=== PATIENT | male | born 1970 | race Caucasian/White ===

== ENCOUNTER 2022-03-08 08:57 | Observation (INO) | payer OTHER, SELFPAY ==
[2022-03-08] VITALS (10 sets, daily range): BP systolic 119–179; BP diastolic 79–89; PULSE 63–103; RESP 12–20; TEMP 36.3–36.8; O2SAT 86–100; BMI 33.6
--- NOTE | 2022-03-08 | PATH_ITS ---
[facility] Accession Number: [id number] . 01 Material submitted: . gallbladder - GALLBLADDER . 01 Clinical history: . ABD PAIN . 01 Diagnosis: Gallbladder, Cholecystectomy: Acute on chronic cholecystitis and cholelithiasis. Benign nodular hepatic parenchyma with mild chronic inflammation involving portal tract and lobule, without evidence of fibrosis. [facility] 03/12/2022 1100 Local . 01 Electronically signed: . Daphne Moses MD, Pathologist NPI- [id number] . 01 Gross description: . The specimen is received in formalin labeled with the patient's name and gallbladder, and consists of an intact gallbladder measuring 7.4 x 3.5 x 2.7 cm with yellow to garcia smooth serosa and a rough hepatic surface with a smooth firm nodule measuring 2.0 x 0.8 x 0.6 cm. The cystic duct is received closed with a clamp, is inked blue, and no pericystic lymph node is identified. The nodule on the hepatic surface is inked black. Opening the specimen reveals the lumen to contain a moderate amount of green mucoid bile and a single brown roughened calculus measuring 1.8 cm in greatest dimension, not grossly obstructing the cystic duct. The mucosa is green and velvety with numerous pinpoint yellow areas of discoloration, consistent with cholesterol with no polyps or lesions identified, and the montano average 0.6 cm thick. [employer] sections to include the hepatic surface nodule and cystic duct margin are submitted in cassette A1. ([id number]) /MRV 03/11/2022 1224 Local . 01 Pathologist provided ICD-10: K80.12 . 01 CPT . 401646 Performed at: 01 [facility] [address] [place] [address] [address], [place], [place] [id number] MD Vasyl Moy MD Phone: [phone]
--- NOTE | 2022-03-08 09:34 | ED_ITS ---
HPI - Abdominal Pain General Chief Complaint: Abdominal Pain Stated Complaint: abd pain Time Seen by Provider: 03/08/22 09:06 Source: patient Mode of arrival: Ambulatory History of Present Illness HPI narrative: 51-year-old male nonsmoker with noncontributory medical history presents with a chief complaint of severe upper abdominal pain since 4:00 a.m.. Patient states that it is gradually worsening on the whole but will have episodes of apparently unprovoked worsening. He has been nauseated but denies any vomiting. He states moving seems to make it worse but eating and drinking play no role. He is had no fever or chills. Denies chest pain or shortness of breath. He denies any history of the same. He denies any alcohol use. He denies any change in diet or medications. He is had no prior abdominal surgeries. He states he had a small bowel movement this morning and is still passing gas Related Data Home Medications Medication Instructions Recorded Confirmed cetirizine 10 mg tablet (Zyrtec) 10 mg PO DAILY 11/16/20 11/16/20 Previous Rx's Medication Instructions Recorded azithromycin 250 mg tablet See Rx Instructions PO .COMPLEX #6 11/16/20 tabs erythromycin 5 mg/gram (0.5 %) eye 1 applic ophthalmic (eye) Q8H #3.5 11/16/20 ointment grams Allergies Allergy/AdvReac Type Severity Reaction Status Date / Time No Known Drug Allergies Allergy Verified 03/08/22 09:03 Review of Systems Review of Systems Narrative: GENERAL: Denies chills, fatigue, malaise, fever, sweats. HEENT: Denies sinus pain, ear pain, sore throat, difficulty swallowing, dizziness. RESPIRATORY: Denies dyspnea, cough, wheezing, hemoptysis, sputum. CARDIOVASCULAR: Denies chest pain, palpitations, orthopnea, edema, GASTROINTESTINAL: See HPI : Denies dysuria, frequency, incontinence, hematuria, urinary retention. MUSCULOSKELETAL: denies weakness, joint pain, or bony pain SKIN: Denies rash, skin lesions, or other NEUROLOGIC: Denies weakness, headache, numbness, change in speech, confusion, seizures, incoordination. PSYCHIATRIC: No concerning psychosocial issues. 12 point review of systems is negative except for those stated above Patient History Social History Smoking Status: Never smoker Smoking Status: Never smoker alcohol intake frequency: holidays/special occasions only Substance Use Type: does not use Exam Narrative Exam Narrative: GENERAL: [51] year old patient appears stated age. Well-developed patient, in mild distress. Obviously uncomfortable, pacing in the room and rubbing his upper abdomen HEAD: Atraumatic. Normocephalic. EYES: Pupils equal round and reactive. Extraocular motions intact. No scleral icterus. No injection or drainage. ENT: Nose without bleeding, purulent drainage. Throat without erythema, tons illar hypertrophy or exudate. Airway patent. NECK: Trachea midline. Non tender CARDIOVASCULAR: Regular rate and rhythm without murmurs, gallops, or rubs. RESPIRATORY: Clear to auscultation. Breath sounds equal bilaterally. No wheezes, rales, or rhonchi. GASTROINTESTINAL: Abdomen soft, distended, tender in the epigastrium, bowel sounds present though slightly decreased EXTREMITIES: No edema or joint tenderness. BACK: Nontender without deformity or crepitance. No flank tenderness. NEURO: AOx3. SKIN: No rash or erythema of visible areas Initial Vital Signs Initial Vital Signs: Vital Signs Temperature 97.7 F 03/08/22 09:00 Pulse Rate 63 03/08/22 09:00 Respiratory Rate 17 03/08/22 09:00 Blood Pressure 179/84 H 03/08/22 09:00 Pulse Oximetry 98 03/08/22 09:00 Oxygen Delivery Method 03/08/22 09:00 Course Orders Ordered: ED Orders 03/08/22 09:15 Complete Blood Count AUTO DIFF Stat Comprehensive Metabolic Panel Stat Lipase Stat 03/08/22 09:37 XR acute abdomen series Stat Lactate (Lactic Acid) Stat 03/08/22 09:38 Lipase Stat 03/08/22 09:46 EKG-12 Lead Stat 03/08/22 10:11 US abdomen limited Stat 03/08/22 12:39 COVID19 -Nasal RAPID/Pre-Proc Stat Discontinued Medications Hydromorphone HCl (Hydromorphone 0.5 Mg Inj) 0.5 mg IV NOW ONE Stop: 03/08/22 12:29 Last Admin: 03/08/22 12:53 Dose: 0.5 mg Documented By: ESSENCE Sodium Chloride (Normal Saline 0.9%) 1,000 mls @ 1,000 mls/hr IV BOLUS ONE Stop: 03/08/22 10:36 Last Admin: 03/08/22 09:43 Dose: 1,000 mls/hr Documented By: ESSENCE(2) Piperacillin Sod/Tazobactam (Sod 4.5 gm/ Sodium Chloride) 100 mls @ 200 mls/hr IV NOW ONE Stop: 03/08/22 12:29 Last Admin: 03/08/22 12:59 Dose: 200 mls/hr Documented By: ESSENCE Ondansetron HCl (Ondansetron 4 Mg/2 Ml Inj) 4 mg IV NOW ONE Stop: 03/08/22 12:29 Last Admin: 03/08/22 12:53 Dose: 4 mg Documented By: ESSENCE Pantoprazole Sodium (Pantoprazole 40 Mg Vial) 40 mg IV NOW ONE Stop: 03/08/22 09:38 Last Admin: 03/08/22 09:43 Dose: 40 mg Documented By: ESSENCE(2) Consultations Consultation #1: Dr. Lofton happy to accept on his service. Vital Signs Vital signs: Vital Signs - 8 hr 03/08/22 09:00 03/08/22 12:01 Temperature 97.7 F Pulse Rate 63 72 Respiratory Rate 17 18 Blood Pressure 179/84 H 177/82 H Pulse Oximetry 98 100 Oxygen Delivery Method Room Air Room Air MDM - Abdominal Pain Lab Data Result diagrams: 03/08/22 09:15 03/08/22 09:15 Labs: Lab Results 03/08/22 03/08/22 Range/Units 09:15 09:15 WBC 9.6 (4.5-11.0) X10^3/uL RBC 4.99 (4.5-5.9) X10^6/uL Hgb 14.8 (13.5-17.5) g/dL Hct 43.1 (41-53) % MCV 86.4 (80-100) fL MCH 29.6 (26-34) PG MCHC 34.3 (30-36) % RDW 13.9 (11.6-14.8) % Plt Count 291 (150-400) X10^3/uL Neut % (Auto) 81.0 H (50-75) % Lymph % (Auto) 14.1 L (25-40) % [place] % (Auto) 4.0 (3-14) % Eos % (Auto) 0.7 L (2-4) % Baso % (Auto) 0.2 (0-2) % Neut # (Auto) 7800 H (7762-3212) /uL Lymph # (Auto) 1400 (5855-9091) /uL [place] # (Auto) 400 (0-900) /uL Eos # (Auto) 100 (0-450) /uL Baso # (Auto) 0 (0-100) /uL Sodium 141 (137-145) mmol/L Potassium 4.3 (3.4-5.1) mmol/L Chloride 106 (98-107) mmol/L Carbon Dioxide 24 (22-32) mmol/L BUN 16 (9-20) mg/dL Creatinine 1.04 (0.66-1.25) mg/dL Estimated GFR > 60 (>60) mL/min BUN/Creatinine Ratio 15.4 (6-22) Glucose 154 H (70-100) mg/dL Calcium 9.6 (8.4-10.2) mg/dL Total Bilirubin 0.3 (0.2-1.3) mg/dL AST 33 (17-59) IU/L ALT 45 (<50) IU/L Alkaline Phosphatase 93 (38-126) U/L Total Protein 8.8 H (6.3-8.2) g/dL Albumin 4.5 (3.5-5.0) g/dL Globulin 4.3 H (1.7-4.1) g/dL Albumin/Globulin Ratio 1.0 (1.0-2.8) Lipase 131 (23-300) U/L Point of care testing: Urine Dip Bedside Urine Glucose Negative Bedside Urine Bilirubin - Negative Bedside Urine Ketone - Negative Urine Specific [place] 1.025 Bedside Urine Occult Blood - Negative Bedside Urine pH 6.0 Bedside Urine Protein - Negative Bedside Urine Urobilinogen - Negative Bedside Urine Nitrite - Negative Bedside Urine Leukocytes - Negative Esterase Imaging Data Chest x-ray: Radiologist's Impression: [address] [address] XRay Report Signed Patient: Goyo Gutierrez MR#: [id number] : 1970 Acct:[id number] Age/Sex: 51 / M Date of Service: 03/08/22 Loc: ED Accession Number: [id number] ?? Procedure: XR acute abdomen series Ordering Provider: [place],Flaco D.O. PROCEDURE:? XR ACUTE ABDOMEN SERIES ? INDICATIONS:? distended, decreased BM, flatus, pain, obstruction? ? TECHNIQUE:? One view chest and two views of the abdomen were acquired.? ? COMPARISON:? None. ? FINDINGS:? ? Surgical changes and devices:? None.? ? Chest:? Lungs are clear.? Heart size is normal.? No pleural effusions.? No pneumoperitoneum.? ? Abdomen:? Stomach is not distended.? There is fecal residue in the right colon.? There is paucity of small bowel gas which limits evaluation for small bowel dilatation.? No obvious dilated loops of bowel.? No suspicious calcifications.? Visualized solid organ contours appear normal.? ? Bones:? No suspicious bony lesions.? ? IMPRESSION:? No acute cardiopulmonary abnormality. ? Paucity of small bowel gas limits evaluation for small bowel obstruction. ? If clinically indicated consider CT abdomen pelvis with IV contrast.? ? Dictated by: Toni May M.D. on 03/08/2022 at 9:05 ? ? Approved by: Toni May M.D. on 03/08/2022 at 9:07 ? US - abdomen: Radiologist's Impression: Goyo Gutierrez??51??M??1970 ? Allergy/Adv: No Known Drug Allergies Close Abdomen Ultrasound (Signed) Call, - 03/08/22 Chest/Abdomen X-ray (Signed) Call,03/08/22 [place] [address] Ultrasound Report Signed Patient: Goyo Gutierrez MR#: [id number] : 1970 Acct:[id number] Age/Sex: 51 / M Date of Service: 03/08/22 Loc: ED Accession Number: [id number] ?? Procedure: US abdomen limited Ordering Provider: Flaco Soria D.O. PROCEDURE:? US ABDOMEN LIMITED ? INDICATIONS:? SEVERE EPIGASTRIC PAIN ? TECHNIQUE:? Real-time scanning was performed of the right upper quadrant, with image documentation.? ? COMPARISON:? [facility], CR, XR ACUTE ABDOMEN SERIES, 03/08/2022, 9:38. ? FINDINGS:? ? Liver:? Measures 15.7 cm in length.? Increased in echogenicity.? Main portal vein demonstrates hepatopetal flow. ? Gallbladder:? Prominent.? Nonmobile stone at the gallbladder neck measuring 1.7 cm.? Gallbladder wall measures 0.3 cm and is within normal limits. No pericholecystic fluid.? Positive sonographic Banks's sign.? ? Biliary ducts:? Not well seen. ? Pancreas:? Not well seen. ? ? IMPRESSION:? 1. Positive sonographic Banks's sign.? Nonmobile stone at the gallbladder neck.? These findings raise the possibility of acute cholecystitis. ? 2. Increased hepatic echogenicity most consistent with hepatic steatosis. Other forms of hepatocellular disease could have similar appearance.? Dictated by: Toni May M.D. on 03/08/2022 at 11:03 ? ? Approved by: Toni May M.D. on 03/08/2022 at 11:06 ? Discharge Plan Departure Patient Disposition: Admitted as Observation Clinical Impression: Gall bladder disease Admit Date/Time: 03/08/22 12:32 Admit Provider: Silverio Lofton
--- NOTE | 2022-03-08 09:37 | DI.RAD.S_ITS ---
PROCEDURE: XR ACUTE ABDOMEN SERIES INDICATIONS: distended, decreased BM, flatus, pain, obstruction? TECHNIQUE: One view chest and two views of the abdomen were acquired. COMPARISON: None. FINDINGS: Surgical changes and devices: None. Chest: Lungs are clear. Heart size is normal. No pleural effusions. No pneumoperitoneum. Abdomen: Stomach is not distended. There is fecal residue in the right colon. There is paucity of small bowel gas which limits evaluation for small bowel dilatation. No obvious dilated loops of bowel. No suspicious calcifications. Visualized solid organ contours appear normal. Bones: No suspicious bony lesions. IMPRESSION: No acute cardiopulmonary abnormality. Paucity of small bowel gas limits evaluation for small bowel obstruction. If clinically indicated consider CT abdomen pelvis with IV contrast. Dictated by: Toni May M.D. on 03/08/2022 at 9:05 Approved by: Toni May M.D. on 03/08/2022 at 9:07
[2022-03-08] MEDS: PANTOPRAZOLE 40 MG VIAL IV (09:43)
[2022-03-08] MEDS: SODIUM CHLORIDE 0.9% 1,000 ML 1000 ML IV (09:43)
[2022-03-08 09:52] LABS: Add Manual Diff / Slide Review NO; Basophils Absolute Auto 0 /uL (0-100); Basophils Percent Auto 0.2 % (0-2); Eosinophils Absolute Auto 100 /uL (0-450); Eosinophils Percent Auto 0.7 % (2-4); Hematocrit 43.1 % (41-53); Hemoglobin 14.8 g/dL (13.5-17.5); Lymphocytes Absolute Auto 1400 /uL (1100-4500); Lymphocytes Percent Auto 14.1 % (25-40); Mean Corpuscular HGB Conc 34.3 % (30-36); Mean Corpuscular Hemoglobin 29.6 PG (26-34); Mean Corpuscular Volume 86.4 fL (80-100); Monocytes Absolute Auto 400 /uL (0-900); Neutrophils Absolute Auto 7800 /uL (1500-7000); Platelet Count 291 X10^3/uL (150-400); Red Blood Cell Count 4.99 X10^6/uL (4.5-5.9); Red Cell Distribution Width 13.9 % (11.6-14.8); White Blood Cell Count 9.6 X10^3/uL (4.5-11.0)
[2022-03-08 09:58] LABS: Alanine Aminotransferase 45 IU/L (<50); Albumin 4.5 g/dL (3.5-5.0); Alkaline Phosphatase 93 U/L (38-126); Aspartate Aminotransferase 33 IU/L (17-59); BUN Creatinine Ratio 15.4 (6-22); Bilirubin Total 0.3 mg/dL (0.2-1.3); Blood Urea Nitrogen 16 mg/dL (9-20); Calcium 9.6 mg/dL (8.4-10.2); Carbon Dioxide 24 mmol/L (22-32); Chloride 106 mmol/L (98-107); Estimated Glomerular Filt Rate > 60 mL/min (>60); Globulin 4.3 g/dL (1.7-4.1); Glucose 154 mg/dL (70-100); HEMOLYSIS < 15 (0-50); Lipase 131 U/L (23-300); Potassium 4.3 mmol/L (3.4-5.1); Sodium 141 mmol/L (137-145); Total Protein 8.8 g/dL (6.3-8.2)
--- NOTE | 2022-03-08 10:11 | DI.US.S_ITS ---
PROCEDURE: US ABDOMEN LIMITED INDICATIONS: SEVERE EPIGASTRIC PAIN TECHNIQUE: Real-time scanning was performed of the right upper quadrant, with image documentation. COMPARISON: , CR, XR ACUTE ABDOMEN SERIES, 03/08/2022, 9:38. FINDINGS: Liver: Measures 15.7 cm in length. Increased in echogenicity. Main portal vein demonstrates hepatopetal flow. Gallbladder: Prominent. Nonmobile stone at the gallbladder neck measuring 1.7 cm. Gallbladder wall measures 0.3 cm and is within normal limits. No pericholecystic fluid. Positive sonographic Banks's sign. Biliary ducts: Not well seen. Pancreas: Not well seen. IMPRESSION: 1. Positive sonographic Banks's sign. Nonmobile stone at the gallbladder neck. These findings raise the possibility of acute cholecystitis. 2. Increased hepatic echogenicity most consistent with hepatic steatosis. Other forms of hepatocellular disease could have similar appearance. Dictated by: Toni May M.D. on 03/08/2022 at 11:03 Approved by: Toni May M.D. on 03/08/2022 at 11:06
[2022-03-08] MEDS: ONDANSETRON 4 MG/2 ML INJ IV (12:53)
[2022-03-08] MEDS: HYDROMORPHONE 0.5 MG INJ IV ×2 (12:53→14:12)
[2022-03-08] MEDS: PIPERACILLIN/TAZO 4.5 GM in SODIUM CHLORIDE 0.9% 100 ML IV (12:59)
[2022-03-08 13:20] LABS: COVID19 -Nasal RAPID Negative (Negative)
--- NOTE | 2022-03-08 15:08 | PM.HP.1 ---
History of Present Illness History of Present Illness Date Patient Seen: 03/08/22 Time Patient Seen: 15:09 Chief complaint: abd pain Narrative: 51-year-old man presented to the emergency room today for evaluation abdominal pain. He developed severe right upper quadrant pain this morning and presented to the emergency room for further evaluation. At arrival afebrile vital signs within normal limits. WBC 10, hematocrit 43, total bilirubin 0.3 LFTs within normal limits. Abdominal ultrasound demonstrates a nonmobile gallstone lodged within the neck of the gallbladder consistent with acute cholecystitis. For the past several months he has been experiencing episodes of right upper quadrant pain following meals which generally self resolve within an hour. No chest pain, pressure or shortness of breath at rest or with exertion. No anticoagulation. No anesthetic issues with previous surgery. Nonsmoker. No bleeding disorders. Relevant perioperative history 1. Obesity BMI 34 Patient History Surgical History (Updated 03/08/22 @ 15:35 by Silverio Lofton MD) S/P ACL repair Family & Social History Social History: household members spouse,children Prior Living Arrangements House Safety & Behavioral: Feels Safe in Current Yes Environment Been Physically Hurt or No Threatened By a Person Tobacco & Substance use: Smoking Status Never smoker alcohol intake frequency holiday/special occasion Substance Use Type does not use Meds Home Medications and Allergies Home Medications Medication Instructions Recorded Confirmed Type azithromycin 250 mg tablet See Rx Instructions PO .COMPLEX #6 11/16/20 11/16/20 Rx tabs cetirizine 10 mg tablet (Zyrtec) 10 mg PO DAILY 11/16/20 11/16/20 History erythromycin 5 mg/gram (0.5 %) eye 1 applic ophthalmic (eye) Q8H #3.5 11/16/20 11/16/20 Rx ointment grams Allergies Allergy/AdvReac Type Severity Reaction Status Date / Time No Known Drug Allergies Allergy Verified 03/08/22 09:03 Exam Vital Signs (past 8 hours): - 03/08/22 09:00 03/08/22 12:01 03/08/22 13:31 Temperature 97.7 F 97.6 F Pulse Rate 63 72 71 Respiratory Rate 17 18 16 Blood Pressure 179/84 H 177/82 H 151/81 H Pulse Oximetry 98 100 96 Oxygen Delivery Method Room Air Room Air Oxygen Delivery Method Room Air Narrative Exam Narrative: General adult male alert oriented no acute distress Chest nonlabored respiration Abdomen positive Banks sign. Extremities warm well perfused Objective Labs Result Diagrams: 03/08/22 09:15 03/08/22 09:15 Labs: Laboratory Results - last 24 hr 03/08/22 03/08/22 03/08/22 09:15 09:15 12:39 WBC 9.6 RBC 4.99 Hgb 14.8 Hct 43.1 MCV 86.4 MCH 29.6 MCHC 34.3 RDW 13.9 Plt Count 291 Neut % (Auto) 81.0 H Lymph % (Auto) 14.1 L [place] % (Auto) 4.0 Eos % (Auto) 0.7 L Baso % (Auto) 0.2 Neut # (Auto) 7800 H Lymph # (Auto) 1400 [place] # (Auto) 400 Eos # (Auto) 100 Baso # (Auto) 0 Sodium 141 Potassium 4.3 Chloride 106 Carbon Dioxide 24 BUN 16 Creatinine 1.04 Estimated GFR > 60 BUN/Creatinine Ratio 15.4 Glucose 154 H Calcium 9.6 Total Bilirubin 0.3 AST 33 ALT 45 Alkaline Phosphatase 93 Total Protein 8.8 H Albumin 4.5 Globulin 4.3 H Albumin/Globulin Ratio 1.0 Lipase 131 SARS-CoV-2 (PCR) Negative Assessment & Plan Assessment and plan (1) Acute cholecystitis: Status: Acute Assessment & Plan narrative: 51-year-old man with symptoms and radiographic findings consistent with acute cholecystitis. We discussed management options including surgical intervention. Following discussion his preference is to proceed with laparoscopic cholecystectomy. Overview of this operation was discussed with the patient. Operative risks including bleeding, infection, damage to surrounding structures, bile injury were discussed. His questions have been answered. He gives his verbal and written consent to proceed. Time Spent With Patient Critical Care time: I spent a total of [] minutes of critical care time on this patient's care today; this time is exclusive of procedural time. Quality VTE Deep Vein Thrombosis/Pulmonary Embolism Present on Admission: No
[2022-03-08] MEDS: LACTATED RINGERS 1,000 ML 42 ML IV (15:55)
--- NOTE | 2022-03-08 16:27 | SUR.OPER ---
Supine on padded OR bed, head on pillow, left arm padded and tucked at sides, legs uncrossed, safety belt at thigh, tape over blanket over lower legs footboard at bottom of bed.
[2022-03-08] MEDS: BUPIVACAINE 0.25% (PF) VIAL 30 ML INJ (16:42)
--- NOTE | 2022-03-08 17:20 | P.OP_ITS ---
Operative Date/Time/Diagnoses Date of procedure: 03/08/22 Time of procedure: 17:20 Pre-op diagnosis: Acute cholecystitis Post-op diagnosis: same Procedure & Clinicians Procedure: Laparoscopic cholecystectomy Same procedure as scheduled: Yes Indications: Symptoms and radiographic findings consistent with acute cholecystitis Surgeon: Silverio Lofton Anesthesia Type: General Operative Notes Findings: Tense hydropic gallbladder with stone lodged within the neck Specimen(s): other (Gallbladder) Estimated Blood Loss (mL): 50 Procedure in detail: The patient was placed supine on the table and bilateral lower extremity compression devices were applied. Anesthesia was induced they were intubated with an endotracheal tube he received Zosyn.. A time-out was performed. They were prepped and draped in sterile fashion. An infraumbilical incision was made, the umbilical stalk was elevated and the fascia was sharply incised e ntering the abdomen atraumatically. A blunt tip 12mm balloon trocar was then inserted, pneumoperitoneum was established and inspection of the abdomen demonstrated no evidence of injury. They were placed head up and right side up and then a 11 mm port was placed high in the epigastrium and two 5mm in the right upper quadrant. Gallbladder was hydropic tense and had a stone lodged within the neck. It was percutaneously drained to facilitate its manipulation. The gallbladder was grasped by the fundus and retracted over the liver and retracted laterally by the infundibulum. Using electrocautery the lateral plane between the gallbladder and the liver was opened towards the fundus. The gallbladder was then retracted laterally and the medial plane was developed in the same manner. With the gallbladder mobilized the bottom of the cystic plate was visualized. The hepatocystic triangle was meticulosly skeletonized of all fat and fibrous tissue from both the front and the back. Only two structures were then clearly seen entering the gallbladder the cystic duct and the cystic artery. With the critical view of safety fully established the cystic duct was clipped twice proximally and once distally using the 10 mm Weck hemo clip applied under direct visualization and then sharply divided. The cystic artery was divided in the same fashion. The gallbladder was removed from the liver bed using electro cautery. The liver bed was then inspected for hemostasis and this was achieved. The abdomen was irrigated with sterile saline and inspection was made that showed the clips in good position. The specimen was removed using Endo-Catch. The abdomen was desufflated. The umbilical fascia was closed with 0 Vicryl in a [id number] fashion under direct visualization. Skin incis ions were irrigated and closed with 4-0 Monocryl. 30 ml of 0.25% bupivacaine was infiltrated into the subcutaneous tissue of the incisions. The wounds were sealed with Dermabond. Patient emerged from anesthesia was extubated and transferred to recovery in stable condition. The sponge and instrument count at the end of the operation was correct. Complications: none Post-operative Condition: stable Disposition: same day surgery
--- NOTE | 2022-03-08 17:42 | SUR.PHASEI ---
report called to DALTON Dee
--- NOTE | 2022-03-08 18:02 | SUR.PHASEI ---
Patient transferred to the floor. Report given to Luiz. VS stable. Abdominal wounds open to air, CDI. IV saline locked x2. Spouse present and she reported having patient's ring and watch.
[2022-03-08] MEDS: HYDROMORPHONE 1 MG INJ IV (18:35)
--- NOTE | 2022-03-08 22:13 | PC.NURSE ---
Pt is AxOx4, independent and cooperative. VSS, pt denies pain. Pt is eating and drinking and no n/v. Lap sites look fine, no drainage and redness. Pt wants to go home to so pt is d/c home today. D/c instruction given to pt and pt verbalized understanding. No other changes.
== END 2022-03-08 22:00 | disposition home or self-care (01) ==
LOC: ED 12:29 → AC 12:33
PROVIDERS: Admitting Provider Surgery; Emergency Provider Emergency Medicine; Referring Provider Emergency Medicine; Visit Provider Surgery
PROC: 0FT44ZZ Resection of Gallbladder, Percutaneous Endoscopic Approach (ICD-10-PCS; CPT 47562; principal; 2022-03-08 15:30)
DX: K80.00 Calculus of gallbladder with acute cholecystitis without obstruction (principal); K21.9 Gastro-esophageal reflux disease without esophagitis; K82.1 Hydrops of gallbladder; E66.9 Obesity, unspecified; Z68.34 Body mass index [BMI] 34.0-34.9, adult; Z20.822 Contact with and (suspected) exposure to COVID-19
CPT/HCPCS: 47562; 36415; 74022; 76705; 80053; 81003; 83690; 85025; 87635; 93005; 96365; 96366; 96375; 96376; 99219; 99284; C9803; G0378; C9113; J1100; J1170; J1885; J2250; J2405; J2543; J2704; J3010